=== PATIENT | female | born 1965 | race Asian ===

== ENCOUNTER → 2017-01-12 | Outpatient (CLI) | payer BC ==
[~2017-01-12] MED LIST: ASPI81TA28 PO; B-COTAB18 PO; CHOL1000 PO; CHOL1POW32 PO; COEN1CAP17 PO; COEN90TA PO; MAGN1CAP2 PO; MAGN400T6 PO; MULT-506 PO; MULT-513 PO; OMEG10007 PO; OYST500T47 PO
[2017-01-12 11:18] LABS: ESTIMATED AVERAGE GLUCOSE 126 mg/dl; HA1C FLAG Normal (Normal)
[2017-01-12 11:22] LABS: BLOOD UREA NITROGEN 20 mg/dl (7-18); BUN/CREATININE RATIO 25.8 (10-20); CARBON DIOXIDE 30 mmol/L (21-32); CHLORIDE 103 mmol/L (98-107); CHOLESTEROL 253 mg/dl (0-200); CREATININE 0.79 mg/dl (0.60-1.20); GLUCOSE 114 mg/dl (70-99); POTASSIUM 4.1 mmol/L (3.5-5.1); SODIUM 137 mmol/L (136-145); TRIGLYCERIDES 197 mg/dl (0-150); VERY LOW DENSITY LIPOPROT CALC 39 mg/dl
[2017-01-12 11:29] LABS: CHOLESTEROL/HDL RATIO 5.2; HDL CHOLESTEROL 49 mg/dl; LDL CHOLESTEROL CALCULATED 165 mg/dl
== END | disposition home or self-care (01) ==
LOC: C.LABBC 08:47
PROVIDERS: ATTEND Family Medicine
DX: Z11.59 Encounter for screening for other viral diseases (principal); R73.03 Prediabetes; Z13.220 Encounter for screening for lipoid disorders

== ENCOUNTER 2017-03-24 18:18 | Emergency (ER) | payer BC ==
[~2017-03-24] VITALS: Ht 152.4 cm; Wt 60.8 kg
[~2017-03-24 18:18] MED LIST changes: -CHOL1000 PO; -COEN1CAP17 PO; -MAGN1CAP2 PO; -MULT-513 PO; -OYST500T47 PO
[2017-03-24 18:26] VITALS: TEMP 36.5; Ht 152.4 cm; Wt 60.8 kg
[2017-03-24] MEDS ORDERED: MAGN1CAP2 PO (19:26)
[2017-03-24] MEDS ORDERED: OYST500T47 PO (19:26)
[2017-03-24] MEDS ORDERED: MULT-513 PO (19:26)
[2017-03-24] MEDS ORDERED: COEN1CAP17 PO (19:26)
[2017-03-24] MEDS ORDERED: CHOL1000 PO (19:26)
--- NOTE | 2017-03-24 19:37 | DIAGNOSTIC IMAGING REPORT ---
ULTRASOUND LEFT VENOUS DOPP LOWER EXT UNILAT CLINICAL HISTORY: Left leg pain COMPARISON STUDY: No previous studies for comparison. FINDINGS: Real-time and color flow Doppler imaging were performed. Flow was seen within the femoral, popliteal and calf veins with no intraluminal thrombus demonstrated. The saphenous vein is patent. There are 2 left-sided popliteal cyst measuring 8 x 25 x 30 mm and 12 x 23 x 40 mm. IMPRESSION: No evidence of left lower extremity DVT. Left-sided popliteal cysts. Electronically signed by: Adam Willis M.D. 03/24/2017 7:35 PM Dictated Date/Time: 03/24/2017 7:34 PM
--- NOTE | 2017-03-24 19:47 | DIAGNOSTIC IMAGING REPORT ---
LEFT KNEE 3 VIEWS CLINICAL HISTORY: Left knee pain COMPARISON: None. DISCUSSION: No fractures or dislocations are visualized. There are no erosive or destructive changes. The joint spaces appear well-preserved for age. There is no radiographic evidence of a joint effusion. There is a small soft tissue calcification in the suprapatellar region. This is not felt to be of clinical significance. IMPRESSION: 1. No evidence of fracture 2. No erosive or destructive changes. Electronically signed by: Adam Willis M.D. 03/24/2017 7:46 PM Dictated Date/Time: 03/24/2017 7:45 PM
--- NOTE | 2017-03-24 19:57 | EMERGENCY ROOM VISIT NOTE ---
ED Visit Note First contact with patient: 18:36 CHIEF COMPLAINT: Pain behind the left knee times one and half weeks HISTORY OF PRESENT ILLNESS: Patient is a 51-year-old female who presents emergency department for evaluation of pain and pressure behind her left knee. She states is been there about a week and a half. She notes that she did move boxes around the time the pain began, but denies any specific injury to the left leg. She notes a deep, aching sensation behind the left knee. It is worse with movement and weightbearing. She states that it loosens up when she gets up and begins to walk, but she occasionally will walk with a limp. It radiates slightly into the top of her calf. She denies any anterior knee pain, locking or crepitus. No remote history of any knee injuries. She has not Tried any medications, nor interventions including ice or heat, stating that she thought it would "just go away." She denies any symptoms in the right leg. There is no radiation of the pain into the thigh. No numbness or tingling. She is not on any oral contraceptives or HRT, is not a smoker and does not have any other PE risk factors, but notes that he she is supposed to travel this coming week. There is no family history of a DVT or PE. She is employed as a psychologist, and is seated a lot for work. REVIEW OF SYSTEMS: Review of systems as per HPI. All other systems reviewed were negative. 10 systems reviewed. PMH: Electronic medical records are reviewed and summarized as above/below. See Problem List. SOCIAL HISTORY: Patient lives at home with her . Employed. She does not smoke. PHYSICAL EXAM: Vital Signs: Reviewed Nurse's notes. CONSTITUTIONAL: Patient is a pleasant, well-appearing 51-year-old female who is awake and alert and in no acute distress. HEART: Regular rate and rhythm. LUNGS: Clear to auscultation. NEUROLOGICAL: Alert oriented, coherent. PERRL, EOMs full, gait normal. EXTREMITIES: Examination of the left leg does not demonstrate any significant swelling, no obvious deformity. No pitting edema. Examination of the left knee does not demonstrate any erythema, increased warmth, soft tissue swelling or joint effusion. There is no peripatellar tenderness or crepitus. No pain over the medial or the lateral joint line. There is some discomfort and fullness in the popliteal space. Knee range of motion is full and there was no ligamentous instability appreciated. Calves are soft and nontender. Negative Homans sign. No palpable cords are appreciated. No lymphangitic streaking. Leg lengths are symmetrical. There is no pain with logroll. Straight leg raise testing is negative bilaterally. Normal strength and DTRs are symmetrical. EMERGENCY DEPARTMENT COURSE: X-rays of the left knee were obtained, and negative for acute pathology. Left lower extremity ultrasound was negative for DVT. There were 2 left-sided popliteal cysts. I suspect her symptoms are related to the popliteal cyst. Differential diagnoses also entertained included knee sprain, muscle strain, DVT, cellulitis, superficial thrombophlebitis, lumbar radiculopathy, among others. Her knee exam is otherwise benign, and conservative care measures were discussed. She was encouraged to ice the area and take an anti-inflammatory medicine, and can follow-up with orthopedics if her symptoms are not improving. She is understanding of this and was agreeable. She was discharged home in good condition. LEFT KNEE 3 VIEWS CLINICAL HISTORY: Left knee pain COMPARISON: None. DISCUSSION: No fractures or dislocations are visualized. There are no erosive or destructive changes. The joint spaces appear well-preserved for age. There is no radiographic evidence of a joint effusion. There is a small soft tissue calcification in the suprapatellar region. This is not felt to be of clinical significance. IMPRESSION: 1. No evidence of fracture 2. No erosive or destructive changes. ULTRASOUND LEFT VENOUS DOPP LOWER EXT UNILAT CLINICAL HISTORY: Left leg pain COMPARISON STUDY: No previous studies for comparison. FINDINGS: Real-time and color flow Doppler imaging were performed. Flow was seen within the femoral, popliteal and calf veins with no intraluminal thrombus demonstrated. The saphenous vein is patent. There are 2 left-sided popliteal cyst measuring 8 x 25 x 30 mm and 12 x 23 x 40 mm. IMPRESSION: No evidence of left lower extremity DVT. Left-sided popliteal cysts. Problem List Medical Problems: (1) Bicuspid aortic valve Status: Chronic Surgical Problems: (1) History of appendectomy Status: Resolved Current/Historical Medications Scheduled Aspirin (Aspirin Ec), 81 MG PO DAILY B-Complex Vitamins (Vitamin B Complex), 1 TAB PO DAILY Cholecalciferol (Vitamin D3), 1 TAB PO DAILY Coenzyme Q10 (Ubidecarenone) (Co Q 10), 100 MG PO DAILY Fish Oil ([place]-3), 1 CAP PO DAILY Magnesium Oxide (Mg Supplement (Magnesium), 1 CAP PO DAILY Multivitamins/Minerals (Mvi With Minerals), 1 TAB PO DAILY Oyster Shell (Calcium), 500 MG PO BID Allergies Coded Allergies: Penicillins (Unverified Allergy, Intermediate, ANAPHYLAXIS, 05/04/15) Meperidine (Unverified Adverse Reaction, Intermediate, SHORTNESS OF BREATH , 05/04/15) UNSURE Vital Signs Date Time Temp Pulse Resp B/P Pulse Ox O2 Delivery O2 Flow Rate FiO2 03/24/17 20:10 74 18 118/73 98 03/24/17 18:26 36.5 68 18 130/85 98 Room Air Departure Information Impression Primary Impression: Synovial cyst of left popliteal space Referrals Dee Lee DO (PCP) Patient Instructions My [facility] Additional Instructions Ibuprofen(Motrin, Advil) may be used for fever or pain. Use 600mg every six hours as needed. Take with food. Avoid using more than 2400mg in a 24 hour period. Do not use 2400mg per day for more than three consecutive days without physician direction. Prolonged inappropriate use can lead to stomach upset or ulcers. This medication can be taken if you need to drive, work, or perform activities which may be dangerous when taking narcotic pain medication. (AND/OR) Acetaminophen(Tylenol) may be used for fever or pain. Use 1000mg every six hours as needed. Avoid using more than 3000mg in a 24 hour period. This medication can be taken if you need to drive, work, or perform activities which may be dangerous when taking narcotic pain medication. Ice compresses for 20 minutes at a time four times daily for 2-3 days. Rest and elevate your injury. Continue current medications. Return to the ER immediately for any numbness, tingling, severe pain, extreme swelling in the extremity or as needed. Follow-up with your primary care physician or orthopedic surgery if your symptoms are not improving in 3-5 days.
[2017-03-24 20:10] VITALS: BP 118/73; PULSE 74; O2SAT 98
== END 2017-03-24 20:10 | disposition home or self-care (01) ==
LOC: C.EDB 18:20 → C.EDD 20:10
DX: M71.22 Synovial cyst of popliteal space [Baker], left knee (principal); Q23.1 Congenital insufficiency of aortic valve; Z79.82 Long term (current) use of aspirin; Z79.899 Other long term (current) drug therapy

== ENCOUNTER → 2017-04-23 | Outpatient (CLI) | payer BC ==
[~2017-04-23] MED LIST changes: +CHOL1000 PO; -CHOL1POW32 PO; +COEN1CAP17 PO; -COEN90TA PO; +MAGN1CAP2 PO; -MAGN400T6 PO; -MULT-506 PO; +MULT-513 PO; +OYST500T47 PO
--- NOTE | 2017-04-23 14:43 | DIAGNOSTIC IMAGING REPORT ---
MRI OF THE LEFT KNEE WITHOUT CONTRAST CLINICAL HISTORY: Left knee pain following lifting injury. COMPARISON STUDY: Left knee radiographs March 24, 2017. TECHNIQUE: Utilizing a 1.5 Jackie magnet and dedicated coil, multiplanar, multiecho imaging of the left knee was performed without intravenous or intraarticular contrast. FINDINGS: Alignment of the left knee is anatomic. There is a small left knee joint effusion and small popliteal cyst. There is no fracture or marrow replacement. Extensor mechanism is intact. The anterior and posterior cruciate ligaments are intact. The medial collateral ligament and lateral collateral ligament complex are also intact. There is no significant chondrosis within the left knee. The lateral meniscus is intact. There is intrasubstance signal within the body and posterior horn of the medial meniscus. There is a possible tear within the posterior root of the medial meniscus. IMPRESSION: 1. Small left knee joint effusion and small popliteal cyst. 2. Possible tear of the posterior root of the medial meniscus with intrasubstance signal within the body and posterior horn of the medial meniscus. 3. Mild soft tissue edema along the posterior aspect of the left knee. 4. Intact cruciate and collateral ligaments. Electronically signed by: Luis F Buck M.D. 04/23/2017 2:42 PM Dictated Date/Time: 04/23/2017 2:35 PM
== END | disposition home or self-care (01) ==
LOC: C.MRIBC 13:32
PROVIDERS: ATTEND Orthopaedic Surgery
DX: M25.562 Pain in left knee (principal); M25.462 Effusion, left knee; M71.22 Synovial cyst of popliteal space [Baker], left knee

== ENCOUNTER → 2017-04-27 | Outpatient (CLI) | payer BC ==
[2017-04-27 11:23] LABS: ALT/SGPT 16 U/L (12-78); CHOLESTEROL 190 mg/dl (0-200); CHOLESTEROL/HDL RATIO 3.5; HDL CHOLESTEROL 54 mg/dl; TRIGLYCERIDES 99 mg/dl (0-150); VERY LOW DENSITY LIPOPROT CALC 20 mg/dl
== END | disposition home or self-care (01) ==
LOC: C.LABBC 08:30
PROVIDERS: ATTEND Specialist
DX: E78.2 Mixed hyperlipidemia (principal)

== ENCOUNTER → 2017-06-27 | Outpatient (CLI) | payer BC ==
[2017-06-27 16:34] LABS: LYME DISEASE AB IGG NEG (NEG); LYME DISEASE AB IGM NEG (NEG)
== END | disposition home or self-care (01) ==
LOC: C.LABBC 11:24
PROVIDERS: ATTEND Orthopaedic Surgery
DX: M25.562 Pain in left knee (principal)

== ENCOUNTER → 2018-01-13 | Outpatient (CLI) | payer BC ==
--- NOTE | 2018-01-14 07:57 | MAMMOGRAPHY REPORT ---
BILATERAL DIGITAL SCREENING MAMMOGRAM TOMOSYNTHESIS WITH CAD: 01/13/2018 CLINICAL HISTORY: Routine screening. Patient has no complaints. TECHNIQUE: Breast tomosynthesis in addition to standard 2D mammography was performed. Current study was also evaluated with a Computer Aided Detection (CAD) system. COMPARISON: Comparison is made to exams dated: 01/17/2016 mammogram, 01/03/2015 mammogram, 08/03/2013 ma mmogram, 06/09/2012 mammogram, 04/20/2011 mammogram, and 04/13/2010 mammogram - [facility] ter. BREAST COMPOSITION: The tissue of both breasts is heterogeneously dense, which may obscure small mas ses. FINDINGS: The parenchymal pattern is unchanged. No developing mass, architectural distortion or clus ter of suspicious microcalcifications is seen in either breast. IMPRESSION: ACR BI-RADS CATEGORY 2: BENIGN There is no mammographic evidence of malignancy. A 1 year screening mammogram is recommended. The pa tient will receive written notification of the results. Approximately 10% of breast cancers are not detected with mammography. A negative mammographic report should not delay biopsy if a clinically suggestive mass is present. Haleigh Turner M.D. ay/:01/13/2018 08:38:06 Sales Associate: Shantal GARCIA(Fior)(Darryl), [facility] letter sent: Normal 1/2 BI-RADS Code: ACR BI-RADS Category 2: Benign
== END | disposition home or self-care (01) ==
LOC: C.MAMM 07:59
PROVIDERS: ATTEND Family Medicine
DX: Z12.31 Encounter for screening mammogram for malignant neoplasm of breast (principal)